=== PATIENT | female | born 1960 | race Caucasian/White ===

== ENCOUNTER 2022-08-08 14:53 | Emergency (ER) | payer BC | END 2022-08-08 16:31 | disposition home or self-care (01) | LOC: ERS 14:53 | DX: S20.20XA Contusion of thorax, unspecified, initial encounter (principal); W11.XXXA Fall on and from ladder, initial encounter ==

== ENCOUNTER 2023-08-05 15:02 | Emergency (ER) | payer OTHER, SELFPAY ==
[2023-08-05] MEDS ORDERED: predniSONE 20 MG TAB ONE (16:18)
[2023-08-05] MEDS ORDERED: Ketorolac Tromethamine 30 MG/ML VIAL ONE ×2 (16:18→16:19)
[2023-08-05] MEDS ORDERED: Cyclobenzaprine 10 MG TAB ONE (16:18)
== END 2023-08-05 17:55 | disposition home or self-care (01) ==
LOC: ERS 15:02
DX: M25.552 Pain in left hip (principal)
CPT/HCPCS: 96372; J1885; J7512